=== PATIENT | male | born 1960 | race Caucasian/White ===

== ENCOUNTER 2018-08-11 08:23 | Observation (INO) ==
[2018-08-11 11:10] LABS: Baso % (Auto) 0.9 % (0.0-2.0); Eos # (Auto) 0.1 th/mm3 (0.0-0.4); Eos % (Auto) 1.2 % (0.0-4.0); Hematocrit 50.5 % (39.0-51.0); Hemoglobin 17.4 gm/dL (13.0-17.0); Lymph # (Auto) 1.7 th/mm3 (1.0-4.8); Lymph % (Auto) 33.1 % (9.0-44.0); Mean Corpuscular HGB Conc 34.4 % (32.0-36.0); Mean Corpuscular Hemoglobin 33.1 pg (27.0-34.0); Mean Corpuscular Volume 96.3 fL (80.0-100.0); Mean Platelet Volume 7.5 fL (7.0-11.0); Mono # (Auto) 0.4 th/mm3 (0.0-0.9); Mono % (Auto) 8.4 % (0.0-8.0); Neut % (Auto) 56.4 % (16.0-70.0); Platelet Count 235 th/mm3 (150-450); Red Blood Count 5.24 mil/mm3 (4.50-5.90); Red Cell Distribution Width 13.7 % (11.6-17.2); White Blood Count 5.2 th/mm3 (4.0-11.0)
--- NOTE | 2018-08-11 11:26 | XR ---
EXAM DATE: 08/11/2018 11:17 AM EST AGE/SEX: 58 years / Male INDICATIONS: Chest pain. CLINICAL DATA: This is the patient's initial encounter. Patient reports that signs and symptoms have been present for 1 day and indicates a pain score of 8/10. MEDICAL/SURGICAL HISTORY: None. None. COMPARISON: No prior exams available for comparison. FINDINGS: A single AP view of the chest demonstrates the lungs to be symmetrically aerated without evidence of mass, infiltrate or effusion. Incidental azygos lobe. The cardiomediastinal contours are unremarkable . Osseous structures are intact. CONCLUSION: Negative for acute process Electronically signed by: Victoriano Meléndez MD Board Certified Radiologist 08/11/2018 11:24 AM EST
[2018-08-11 11:27] LABS: Activated Partial Thrombo Time 30.9 sec (23.4-31.7); Prothrombin Time 10.1 sec (9.8-11.6)
[2018-08-11 11:32] LABS: Albumin 4.3 g/dL (3.4-5.0); Anion Gap 8 meq/L (5-15); Aspartate Aminotransferase 30 U/L (15-37); Blood Urea Nitrogen 14 mg/dL (7-18); Calcium 9.1 mg/dL (8.5-10.1); Chloride 103 meq/L (98-107); Glomerular Filtration Rate 74 mL/min (>89); Glucose,Random 83 mg/dL (74-106); Lipase 396 U/L (73-393); Sodium 138 meq/L (136-145)
[2018-08-11 11:37] LABS: Alanine Aminotransferase 50 U/L (12-78); Alkaline Phosphatase 55 U/L (45-117); Creatine Kinase 107 U/L (39-308); Total Protein 8.7 g/dL (6.4-8.2); Troponin I 0.03 ng/mL (0.02-0.05)
[2018-08-11 11:49] LABS: Creatine Kinase MB 1.5 ng/mL (0.5-3.6)
[2018-08-11 12:01] LABS: Eosinophils 1 % (0-4); Lymphocytes 24 % (9-44); Monocytes 10 % (0-8); Tallied Nucleated RBC 2 (0-0)
[2018-08-11 12:04] LABS: Platelet Estimate Normal (Normal); Platelet Morphology Normal (Normal)
--- NOTE | 2018-08-11 12:59 | ED ---
HPI General Chief complaint: Chest Pain Stated complaint: Cardiac/SOB Complaint Time Seen by Provider: 08/11/18 10:19 Source: patient Mode of arrival: ambulatory Limitations: no limitations History of Present Illness HPI narrative: Patient is a 58-year-old male who comes in complaining of chest pain. He pain for months. He went to see his doctor yesterday who told him that if he had another episode he should come to the emergency department. He was given a prescription for nitroglycerin by his doctor, but he has not taken any. He says the pain is in the middle of his chest, he gets dizzy when it comes on and feels a little short of breath. This does seem to be related to exertion. He did experience pain to the center of his chest spreading up to his neck today, which she says is similar to previous episodes. He denies cough or cold symptoms. He denies fever chills. Severity is moderate. Related Data Home Medications Medication Instructions Recorded Confirmed amlodipine 10 mg PO QPM 08/11/18 08/11/18 atenolol 100 mg PO BID 08/11/18 08/11/18 diazepam 5 mg PO BID 08/11/18 08/11/18 dolutegravir-rilpivirine [Juluca] 1 tab PO QPM 08/11/18 08/11/18 nitroglycerin 0.4 mg SUBLINGUAL Q5-15M PRN 08/11/18 08/11/18 tenofovir disoproxil fumarate 300 mg PO QPM 08/11/18 08/11/18 Allergies Allergy/AdvReac Type Severity Reaction Status Date / Time No Known Allergies Allergy Verified 08/11/18 10:42 Review of Systems ROS: all other systems reviewed are negative Constitutional Denies chills and Denies fever(s) ENT Denies dizziness Cardiovascular Reports chest pain Respiratory Denies cough Gastrointestinal Denies nausea and Denies vomiting Musculoskeletal Denies myalgias and Denies arthralgias Integumentary/Breasts Denies sores and Denies wounds Neurologic Denies focal weakness and Denies numbness PMFSH Medical History Medical History HIV (human immunodeficiency virus infection) (Acute) Hypertension (Acute) Social History Social History Substance History: Active Abuse Second Hand Smoke Exposure: No Smoking Status: Former smoker How Often Do You Have a Drink Containing Alcohol: Never Recent Travel in [facility] within the Last 8 Weeks: No Recent Out of Country Travel within the Last 8 Weeks: No Substance Abuse Detail Marijuana: Substance Use Status: Active Route Used Substance Abuse: Inhalation Reason for Use: Get High Immunization History Tetanus Immunization: <5 Years Exam Narrative Exam Narrative: GENERAL: Awake and alert, no acute distress. SKIN: Focused skin assessment warm/dry. HEAD: Atraumatic. Normocephalic. EYES: Pupils equal and round. No scleral icterus. No injection or drainage. ENT: No nasal bleeding or discharge. Mucous membranes pink and moist. NECK: Trachea midline. No JVD. CARDIOVASCULAR: Regular rate and rhythm. No murmur appreciated. RESPIRATORY: No accessory muscle use. Clear to auscultation. Breath sounds equal bilaterally. GASTROINTESTINAL: Abdomen soft, non-tender, nondistended. MUSCULOSKELETAL: No obvious deformities. No clubbing. No cyanosis. No edema. NEUROLOGICAL: Awake and alert. No obvious cranial nerve deficits. Motor grossly within normal limits. Normal speech. PSYCHIATRIC: Appropriate mood and affect; insight and judgment normal. Course Initial Documented Vital Signs Temperature 98.0 F 08/11/18 08:31 Pulse Rate 65 08/11/18 08:31 Respiratory Rate 20 08/11/18 08:31 Blood Pressure 169/87 H 08/11/18 08:31 Pulse Oximetry 98 08/11/18 08:31 Last Documented Vital Signs Temperature 97.8 F 08/11/18 19:27 Pulse Rate 63 08/11/18 19:27 Respiratory Rate 18 08/11/18 19:27 Blood Pressure 146/85 H 08/11/18 19:27 Pulse Oximetry 92 L 08/11/18 19:34 Medical Decision Making MDM Narrative Medical decision making narrative: Patient is a 4-year-old male comes in complaining of chest pain. Exam shows no acute abnormalities. IV established, labs sent. Patient connected to the monitoring analyst. Patient given aspirin and nitro. Labs show no acute abnormalities. Chest x-ray shows no acute abnormalities. Patient will be placed in chest pain center for further management. Medical Screen Exam Complete: Yes Emergency Medical Condition: Yes Differential Diagnosis Differential Diagnosis: ACS versus NSTEMI versus STEMI Medical Records Medical records reviewed: Yes I reviewed the patient's medical records. Lab Data Lab results reviewed: Yes I reviewed the patient's lab results. Result diagrams: 08/11/18 10:45 08/11/18 10:45 Lab Results 08/11/18 08/11/18 08/11/18 Range/Units 10:45 10:45 10:45 WBC 5.2 (4.0-11.0) th/mm3 RBC 5.24 (4.50-5.90) mil/mm3 Hgb 17.4 H (13.0-17.0) gm/dL Hct 50.5 (39.0-51.0) % MCV 96.3 (80.0-100.0) fL MCH 33.1 (27.0-34.0) pg MCHC 34.4 (32.0-36.0) % RDW 13.7 (11.6-17.2) % Plt Count 235 (150-450) th/mm3 MPV 7.5 (7.0-11.0) fL Prelim Diff (Auto) Slide review pending Neut % (Auto) 56.4 (16.0-70.0) % Lymph % (Auto) 33.1 (9.0-44.0) % [place] % (Auto) 8.4 H (0.0-8.0) % Eos % (Auto) 1.2 (0.0-4.0) % Baso % (Auto) 0.9 (0.0-2.0) % Neut # (Auto) 3.0 (1.8-7.7) th/mm3 Lymph # (Auto) 1.7 (1.0-4.8) th/mm3 [place] # (Auto) 0.4 (0.0-0.9) th/mm3 Eos # (Auto) 0.1 (0.0-0.4) th/mm3 Baso # (Auto) 0.0 (0.0-0.2) th/mm3 WBC Differential Manual diff final Seg Neuts % (Manual) 63 (16-70) % Band Neuts % (Manual) 1 (0-6) % Lymphocytes % (Manual) 24 (9-44) % Monocytes % (Manual) 10 H (0-8) % Eosinophils % (Manual) 1 (0-4) % Basophils % (Manual) 1 (0-2) % Abs Neuts (Manual) 3.3 (1.8-7.7) th/mm3 Nucleated RBCs/100 WBC 2 H (0-0) /100 WBC Differential Comment . Platelet Estimate Normal (Normal) Platelet Morphology Normal (Normal) PT 10.1 (9.8-11.6) sec INR 1.0 Ratio APTT 30.9 (23.4-31.7) sec Sodium 138 (136-145) meq/L Potassium 4.0 (3.5-5.1) meq/L Chloride 103 (98-107) meq/L Carbon Dioxide 27.0 (21.0-32.0) meq/L Anion Gap 8 (5-15) meq/L BUN 14 (7-18) mg/dL Creatinine 1.03 (0.60-1.30) mg/dL Estimated GFR 74 L (>89) mL/min Random Glucose 83 (74-106) mg/dL Calcium 9.1 (8.5-10.1) mg/dL Total Bilirubin 0.6 (0.2-1.0) mg/dL AST 30 (15-37) U/L ALT 50 (12-78) U/L Alkaline Phosphatase 55 (45-117) U/L Total Creatine Kinase 107 (39-308) U/L CK-MB (CK-2) 1.5 (0.5-3.6) ng/mL Troponin I 0.03 (0.02-0.05) ng/mL Total Protein 8.7 H (6.4-8.2) g/dL Albumin 4.3 (3.4-5.0) g/dL Lipase 396 H (73-393) U/L 08/11/18 08/11/18 Range/Units 15:07 18:27 WBC (4.0-11.0) th/mm3 RBC (4.50-5.90) mil/mm3 Hgb (13.0-17.0) gm/dL Hct (39.0-51.0) % MCV (80.0-100.0) fL MCH (27.0-34.0) pg MCHC (32.0-36.0) % RDW (11.6-17.2) % Plt Count (150-450) th/mm3 MPV (7.0-11.0) fL Prelim Diff (Auto) Neut % (Auto) (16.0-70.0) % Lymph % (Auto) (9.0-44.0) % [place] % (Auto) (0.0-8.0) % Eos % (Auto) (0.0-4.0) % Baso % (Auto) (0.0-2.0) % Neut # (Auto) (1.8-7.7) th/mm3 Lymph # (Auto) (1.0-4.8) th/mm3 [place] # (Auto) (0.0-0.9) th/mm3 Eos # (Auto) (0.0-0.4) th/mm3 Baso # (Auto) (0.0-0.2) th/mm3 WBC Differential Seg Neuts % (Manual) (16-70) % Band Neuts % (Manual) (0-6) % Lymphocytes % (Manual) (9-44) % Monocytes % (Manual) (0-8) % Eosinophils % (Manual) (0-4) % Basophils % (Manual) (0-2) % Abs Neuts (Manual) (1.8-7.7) th/mm3 Nucleated RBCs/100 WBC (0-0) /100 WBC Differential Comment Platelet Estimate (Normal) Platelet Morphology (Normal) PT (9.8-11.6) sec INR Ratio APTT (23.4-31.7) sec Sodium (136-145) meq/L Potassium (3.5-5.1) meq/L Chloride (98-107) meq/L Carbon Dioxide (21.0-32.0) meq/L Anion Gap (5-15) meq/L BUN (7-18) mg/dL Creatinine (0.60-1.30) mg/dL Estimated GFR (>89) mL/min Random Glucose (74-106) mg/dL Calcium (8.5-10.1) mg/dL Total Bilirubin (0.2-1.0) mg/dL AST (15-37) U/L ALT (12-78) U/L Alkaline Phosphatase (45-117) U/L Total Creatine Kinase 122 85 (39-308) U/L CK-MB (CK-2) (0.5-3.6) ng/mL Troponin I 0.03 0.03 (0.02-0.05) ng/mL Total Protein (6.4-8.2) g/dL Albumin (3.4-5.0) g/dL Lipase (73-393) U/L Imaging Data Radiologist's impression: Chest X-Ray 08/11/18 10:25 CONCLUSION: Negative for acute process ECG Data EKG Prior to Arrival: No Attestation: I personally reviewed and interpreted this ECG as follows: Interpretation: ECG shows normal sinus rhythm, no ST elevation or depression Discharge Plan Discharge Disposition Patient Disposition: ED Admit(ED Internal Use Only) Discharge Condition Condition: Stable Discharge Order Discharge Orders: ED Use Only Admit Order (Routine); Ordered 08/11/18 Ordered By: Dolores Hare Discharge Details Diagnosis: Chest pain Physicians Team ED Provider: Dolores Hare Primary Care Provider: UNKNOWN, Attending Provider: David Ty Status ED Status: Left Department Discharge Information Discharge Date/Time: 08/11/18 15:13
--- NOTE | 2018-08-11 14:27 | P.PNCA ---
Subjective Interval history: 58-year-old patient with a history of hypertension and HIV positive followed by Dr. Ro in [place]. About 2 months ago he began to notice some intermittent chest discomfort that was precipitated [place] He was having this perhaps 2-3 times a week. Over the ensuing 2 months the frequency and severity has increased so that over the last week he has had it for more times. 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 The predominance of pain occurs with exertion although he has had some resting episodes. Generally it lasts 15-20 minutes and is associated with shortness of breath. He has a history of cigarette abuse although he stopped cigarettes 6 years ago but still vapes and a positive family history. History is as otherwise documented in the chart Medications and Allergies Active Medications: Active Medications Sodium Chloride (Ns Flush) 2 ml IV.FLUSH UNSCH PRN PRN Reason: FLUSH AFTER USING IV ACCESS Allergies Allergy/AdvReac Type Severity Reaction Status Date / Time No Known Allergies Allergy Verified 08/11/18 10:42 Home Medications Medication Instructions Recorded Confirmed Type amlodipine 10 mg PO QPM 08/11/18 08/11/18 History atenolol 100 mg PO BID 08/11/18 08/11/18 History dolutegravir-rilpivirine [Juluca] 1 tab PO QPM 08/11/18 08/11/18 History nitroglycerin 0.4 mg SUBLINGUAL Q5-15M PRN 08/11/18 08/11/18 History tenofovir disoproxil fumarate 300 mg PO QPM 08/11/18 08/11/18 History Physical Exam Vital signs: Vital Signs 08/11/18 08:31 08/11/18 10:40 08/11/18 12:03 Temperature 98.0 F Pulse Rate 65 64 58 L Respiratory Rate 20 18 Blood Pressure 169/87 H 196/104 H 176/89 H Pulse Oximetry 98 98 98 08/11/18 13:12 Temperature Pulse Rate 55 L Respiratory Rate 18 Blood Pressure 174/91 H Pulse Oximetry 97 Intake & Output 08/10/18 08/11/18 08/11/18 18:59 06:59 18:59 Weight 87.09 kg Narrative: Well-nourished well-developed man resting comfortably in bed but apparently anxious Pertinence Skin warm and dry with several tattoos on arms Mouth mucous membranes moist tongue well papillated but upper and lower plates in place no lesions Neck supple no JVD masses nodes or bruits Chest nontender diminished breath sounds but no rales wheezes or rhonchi Cardiovascular PMI is not displaced there is a soft 1/6 systolic murmur but no gallops or rubs Abdomen soft nontender no guarding or rebound no masses Psychiatric patient seems to be anxious but affect and judgment seem intact Results 08/11/18 10:45 08/11/18 10:45 Cardiac Enzymes 08/11/18 Range/Units 10:45 AST 30 (15-37) U/L CK-MB (CK-2) 1.5 (0.5-3.6) ng/mL Troponin I 0.03 (0.02-0.05) ng/mL Coagulation 08/11/18 Range/Units 10:45 PT 10.1 (9.8-11.6) sec APTT 30.9 (23.4-31.7) sec CBC 08/11/18 Range/Units 10:45 WBC 5.2 (4.0-11.0) th/mm3 RBC 5.24 (4.50-5.90) mil/mm3 Hgb 17.4 H (13.0-17.0) gm/dL Hct 50.5 (39.0-51.0) % Plt Count 235 (150-450) th/mm3 Neut # (Auto) 3.0 (1.8-7.7) th/mm3 Lymph # (Auto) 1.7 (1.0-4.8) th/mm3 [place] # (Auto) 0.4 (0.0-0.9) th/mm3 Eos # (Auto) 0.1 (0.0-0.4) th/mm3 Baso # (Auto) 0.0 (0.0-0.2) th/mm3 Comprehensive Metabolic Panel 08/11/18 Range/Units 10:45 Sodium 138 (136-145) meq/L Potassium 4.0 (3.5-5.1) meq/L Chloride 103 (98-107) meq/L Carbon Dioxide 27.0 (21.0-32.0) meq/L BUN 14 (7-18) mg/dL Creatinine 1.03 (0.60-1.30) mg/dL Calcium 9.1 (8.5-10.1) mg/dL AST 30 (15-37) U/L ALT 50 (12-78) U/L Alkaline Phosphatase 55 (45-117) U/L Total Protein 8.7 H (6.4-8.2) g/dL Albumin 4.3 (3.4-5.0) g/dL Intake and Output 08/10/18 08/11/18 08/11/18 22:59 06:59 14:59 Other: Weight 87.09 kg Patient Weight 08/12/18 06:59 Weight 87.09 kg - Imaging and Cardiology Imaging: Impressions Chest X-Ray 08/11/18 10:25 CONCLUSION: Negative for acute process Assessment and Plan - Plan Patient will be evaluated and ruled out using chest pain center protocol. If negative he will be evaluated with Lexiscan since he has an abnormal resting EKG and possible unstable angina with increasing frequency and severity of his episodes.
[2018-08-11] MEDS ORDERED: Acetaminophen 500 MG Tablet PO PRN (14:57)
[2018-08-11] MEDS ORDERED: ALPRAZolam 0.25 MG Tablet PO PRN (15:06)
--- NOTE | 2018-08-11 15:06 | P.HPCA ---
History of Present Illness Primary Care Physician: UNKNOWN Chief Complaint: Chest pain History of Present Illness: This is a 58-year-old male that presents to ED with history of hypertension and HIV that was diagnosed in 1994 that presents to ED via private vehicle with complaint of 2 months of intermittent heaviness/pressure in the center of his chest. It at times will radiate to his neck. Sometimes is brought on by eating but always always this occurred with activity which she describes as walking. It will be relieved by sitting within 15-30 minutes. It can linger on for some time it is brought on after eating. He at times is short of breath. Denies nausea or diaphoresis. Denies recent illness. Denies fevers or chills. Was seen by his primary care physician in [place] yesterday and atenolol was increased from 100 mg once a day to twice a day and he was advised to go to an ER for further evaluation of his chest discomfort. He presented today. Has no chest discomfort at this time. Past medical history: Hypertension. Diagnosed HIV 1994 states now nondetectable. Denies hyperlipidemia, diabetes, and known CAD. Family history: States his father had onset CAD in his 40s. Social history: Patient quit smoking cigarettes 6 years ago and was smoking about 2 pack of series daily for 44 years at that time. He is currently been vaping for the last 6 years. Rarely has alcohol. Smokes marijuana 2-3 times a month. Surgical history: Colon resection secondary to diverticulitis. Appendectomy. Right carpal tunnel release. - Diagnosis (1) Chest pain (2) Hypertension (3) HIV (human immunodeficiency virus infection) Review of Systems General: Patient denies fevers, chills, and recent travel. HEENT: Patient denies headache, sore throat, difficulty swallowing. Cardiovascular: Has the chest discomfort as mentioned above. Denies sensation of heart beating rapidly or irregularly. No syncope. Denies diaphoresis. Respiratory: Occasionally short of breath. Denies inspirational chest discomfort. Denies coughing wheezing or hemoptysis. GI: Patient denies nausea, vomiting, diarrhea, abdominal pain, bloody stools. Musculoskeletal: Patient denies joint pain or edema. Denies calf pain or edema. Neurovascular: Patient denies numbness, tingling, weakness in extremities. Denies headache. Endocrine: Denies polyuria and polydipsia. Hematologic: Denies easy bruising. Skin: Denies rash or itching. PMFSH - History History Provided By: Patient - Medical History Medical History: Medical History (Last Updated 08/11/18 @ 08:32 by Svetlana Mcnair) HIV (human immunodeficiency virus infection) Hypertension - Tobacco History Smoking Status: Former smoker - Alcohol History How Often Do You Have a Drink Containing Alcohol: Never - Substance Use History Substance History: Active Abuse - Substance Use Type Marijuana Status: Active Route Used: Inhalation Reason for Use: Get High - Travel History Recent Travel in the [place] Within the Last 8 Weeks: No Recent Travel Out of the Country Within the Last 8 Weeks: No - Immunization History Tetanus Immunization: <5 Years Medications and Allergies Active Medications: Active Medications Amlodipine Besylate (Norvasc) 10 mg PO QPM [place] Atenolol (Tenormin) 100 mg PO BID [place] Non-Formulary Medication (Dolutegravir-Rilpivirine [Juluca]) 1 tab PO QPM [place] Sodium Chloride (Ns Flush) 2 ml IV.FLUSH UNSCH PRN PRN Reason: FLUSH AFTER USING IV ACCESS Tenofovir Disoproxil Fumarate (Viread) 300 mg PO QPM [place] Allergies Allergy/AdvReac Type Severity Reaction Status Date / Time No Known Allergies Allergy Verified 08/11/18 10:42 Home Medications Medication Instructions Recorded Confirmed Type amlodipine 10 mg PO QPM 08/11/18 08/11/18 History atenolol 100 mg PO BID 08/11/18 08/11/18 History dolutegravir-rilpivirine [Juluca] 1 tab PO QPM 08/11/18 08/11/18 History nitroglycerin 0.4 mg SUBLINGUAL Q5-15M PRN 08/11/18 08/11/18 History tenofovir disoproxil fumarate 300 mg PO QPM 08/11/18 08/11/18 History Exam Vital signs: Vital Signs 08/11/18 08:31 08/11/18 10:40 08/11/18 12:03 Temperature 98.0 F Pulse Rate 65 64 58 L Respiratory Rate 20 18 Blood Pressure 169/87 H 196/104 H 176/89 H Pulse Oximetry 98 98 98 08/11/18 13:12 Temperature Pulse Rate 55 L Respiratory Rate 18 Blood Pressure 174/91 H Pulse Oximetry 97 Intake & Output 08/10/18 08/11/18 08/11/18 18:59 06:59 18:59 Weight 87.09 kg Narrative: GENERAL: This is a well-nourished, well-developed patient, in no apparent distress. Patient speaks in clear complete sentences. Patient is pleasant. HEENT: Head is atraumatic and normocephalic. Neck is supple without lymphadenopathy and trachea is midline. No JVD or carotid bruits. CARDIOVASCULAR: Grade 1 systolic murmur left sternal border. Regular rate and rhythm without gallops or rubs. RESPIRATORY: Clear to auscultation. Breath sounds equal bilaterally. No wheezes , rales, or rhonchi. Chest wall is nontender. No use of accessory muscles. GASTROINTESTINAL: Abdomen is nontender, nondistended. Abdomen soft. No obvious pulsatile mass or bruit. No CVA tenderness. Strong femoral pulses bilaterally. Normal bowel sounds in all quadrants. MUSCULOSKELETAL: Patient is moving upper and lower extremities freely. No calf tenderness or edema, no Homans sign. Strong pulses in upper and lower extremities. NEUROLOGICAL: Patient is alert and oriented. Cranial nerves 2-12 are grossly intact. No focal deficits and speech is clear. SKIN: No rash and turgor is normal. Results 08/11/18 10:45 08/11/18 10:45 Cardiac Enzymes 08/11/18 Range/Units 10:45 AST 30 (15-37) U/L CK-MB (CK-2) 1.5 (0.5-3.6) ng/mL Troponin I 0.03 (0.02-0.05) ng/mL Coagulation 08/11/18 Range/Units 10:45 PT 10.1 (9.8-11.6) sec APTT 30.9 (23.4-31.7) sec CBC 08/11/18 Range/Units 10:45 WBC 5.2 (4.0-11.0) th/mm3 RBC 5.24 (4.50-5.90) mil/mm3 Hgb 17.4 H (13.0-17.0) gm/dL Hct 50.5 (39.0-51.0) % Plt Count 235 (150-450) th/mm3 Neut # (Auto) 3.0 (1.8-7.7) th/mm3 Lymph # (Auto) 1.7 (1.0-4.8) th/mm3 [place] # (Auto) 0.4 (0.0-0.9) th/mm3 Eos # (Auto) 0.1 (0.0-0.4) th/mm3 Baso # (Auto) 0.0 (0.0-0.2) th/mm3 Comprehensive Metabolic Panel 08/11/18 Range/Units 10:45 Sodium 138 (136-145) meq/L Potassium 4.0 (3.5-5.1) meq/L Chloride 103 (98-107) meq/L Carbon Dioxide 27.0 (21.0-32.0) meq/L BUN 14 (7-18) mg/dL Creatinine 1.03 (0.60-1.30) mg/dL Calcium 9.1 (8.5-10.1) mg/dL AST 30 (15-37) U/L ALT 50 (12-78) U/L Alkaline Phosphatase 55 (45-117) U/L Total Protein 8.7 H (6.4-8.2) g/dL Albumin 4.3 (3.4-5.0) g/dL Intake and Output 08/10/18 08/11/18 08/11/18 22:59 06:59 14:59 Other: Weight 87.09 kg Patient Weight 08/12/18 06:59 Weight 87.09 kg - Imaging and Cardiology Imaging: Impressions Chest X-Ray 08/11/18 10:25 CONCLUSION: Negative for acute process EKG interpretations - EKG EKG shows: sinus rhythm (Initial EKG is sinus rhythm with nonspecific ST-T T changes.) Caprini VTE Risk Assessment Caprini VTE Risk Assessment: No/Low Risk (score <= 1) Caprini Risk Assessment Model: Point Value = 1 Point Value = 2 Point Value = 3 Point Value = 5 Age 41-60 Minor surgery BMI > 25 kg/m2 Swollen legs Varicose veins or History of unexplained or recurrent spontaneous Oral contraceptives or hormone replacement Sepsis (< 1 month) Serious lung disease, including pneumonia (< 1 month) Abnormal pulmonary function Acute myocardial infarction Congestive heart failure (< 1 month) History of inflammatory bowel disease Medical patient at bed rest Age 61-74 Arthroscopic surgery Major open surgery (> 45 min) Laparoscopic surgery (> 45 min) Malignancy Confined to bed (> 72 hours) Immobilizing plaster cast Central venous access Age >= 75 History of VTE Family history of VTE Factor V Leiden Prothrombin [id number] Lupus anticoagulant Anticardiolipin antibodies Elevated serum homocysteine Heparin-induced thrombocytopenia Other congenital or acquired thrombophilia Stroke (< 1 month) Elective arthroplasty Hip, pelvis, or leg fracture Acute spinal cord injury (< 1 month) Prophylaxis Regimen: Total Risk Factor Score Risk Level Prophylaxis Regimen 0-1 Low Early ambulation 2 Moderate Order ONE of the following: *Sequential Compression Device (SCD) *Heparin 5000 units SQ BID 3-4 Higher Order ONE of the following medications: *Heparin 5000 units SQ TID *Enoxaparin/Lovenox 40 mg SQ daily (WT < 150 kg, CrCl > 30 mL/min) *Enoxaparin/Lovenox 30 mg SQ daily (WT < 150 kg, CrCl > 10-29 mL/min) *Enoxaparin/Lovenox 30 mg SQ BID (WT < 150 kg, CrCl > 30 mL/min) AND/OR *Sequential Compression Device (SCD) 5 or more Highest Order ONE of the following medications: *Heparin 5000 units SQ TID (Preferred with Epidurals) *Enoxaparin/Lovenox 40 mg SQ daily (WT < 150 kg, CrCl > 30 mL/min) *Enoxaparin/Lovenox 30 mg SQ daily (WT < 150 kg, CrCl > 10-29 mL/min) *Enoxaparin/Lovenox 30 mg SQ BID (WT < 150 kg, CrCl > 30 mL/min) AND *Sequential Compression Device (SCD) Assessment and Plan - Assessment (1) Chest pain Code(s): R07.9 - Chest pain, unspecified Status: Acute (2) Hypertension Code(s): I10 - Essential (primary) hypertension Status: Acute (3) HIV (human immunodeficiency virus infection) Code(s): B20 - Human immunodeficiency virus [HIV] disease Status: Acute - Plan Patient will be evaluated and ruled out using chest pain center protocol. If negative he will be evaluated with Lexiscan since he has an abnormal resting EKG and possible unstable angina with increasing frequency and severity of his episodes. (1) Chest pain Qualifiers: Chest pain type: unspecified Qualified Code(s): R07.9 - Chest pain, unspecified
[2018-08-11 16:19] LABS: Troponin I 0.03 ng/mL (0.02-0.05)
[2018-08-11] MEDS ORDERED: RILPIVIRINE 25 MG PO SCH (18:00)
[2018-08-11] MEDS ORDERED: DOLUTEGRAVIR RILPIVIRINE PO SCH (18:00)
[2018-08-11] MEDS ORDERED: amLODIPine 10 MG Tablet PO SCH (18:00)
[2018-08-11] MEDS ORDERED: Tenofovir 300 MG Tablet PO SCH (18:00)
[2018-08-11 19:07] LABS: Troponin I 0.03 ng/mL (0.02-0.05)
[2018-08-11] MEDS: Atenolol 100 MG Tablet PO SCH (21:13)
[2018-08-12 07:55] VITALS: RESP 16
[2018-08-12] MEDS ORDERED: Regadenoson Inj 0.4 MG/5 ML Syringe IV.PUSH ONE (08:31)
--- NOTE | 2018-08-12 08:31 | P.PNCA ---
Subjective Interval history: No complaints overnight. Medications and Allergies Active Medications: Active Medications Acetaminophen (Tylenol) 500 mg PO Q6H PRN PRN Reason: pain scale 1-5 Hydrocodone Bitart/Acetaminophen (Hope 7.5/325) 1 tab PO Q6H PRN PRN Reason: pain scale 6-10 Albuterol (Duoneb Neb (Prn)) 1 ampul NEB Q4HR NEB PRN PRN Reason: SHORTNESS OF BREATH/WHEEZING Alprazolam (Xanax) 0.25 mg PO Q8H PRN PRN Reason: ANXIETY Amlodipine Besylate (Norvasc) 10 mg PO QPM [facility] Last Admin: 08/11/18 18:03 Dose: 10 mg Aspirin (Aspirin) 325 mg PO DAILY [facility] Atenolol (Tenormin) 100 mg PO BID [facility] Last Admin: 08/11/18 21:13 Dose: 100 mg Dolutegravir Sodium (Tivicay) 50 mg PO QPM [facility] Last Admin: 08/11/18 18:02 Dose: 50 mg Ondansetron HCl (Zofran Inj) 4 mg IV.PUSH Q6H PRN PRN Reason: NAUSEA Rilpivirine (Edurant) 25 mg PO QPM [facility] Last Admin: 08/11/18 18:03 Dose: 25 mg Sodium Chloride (Ns Flush) 2 ml IV.FLUSH UNSCH PRN PRN Reason: FLUSH AFTER USING IV ACCESS Sodium Chloride (Ns Flush) 2 ml IV.FLUSH BID [facility] Last Admin: 08/11/18 21:15 Dose: 2 ml Sodium Chloride (Ns Flush) 2 ml IV.FLUSH PRN PRN PRN Reason: FLUSH AFTER USING IV ACCESS Tenofovir Disoproxil Fumarate (Viread) 300 mg PO QPM [facility] Last Admin: 08/11/18 18:05 Dose: 300 mg Allergies Allergy/AdvReac Type Severity Reaction Status Date / Time No Known Allergies Allergy Verified 08/11/18 10:42 Home Medications Medication Instructions Recorded Confirmed Type amlodipine 10 mg PO QPM 08/11/18 08/11/18 History atenolol 100 mg PO BID 08/11/18 08/11/18 History diazepam 5 mg PO BID 08/11/18 08/11/18 History dolutegravir-rilpivirine [Juluca] 1 tab PO QPM 08/11/18 08/11/18 History nitroglycerin 0.4 mg SUBLINGUAL Q5-15M PRN 08/11/18 08/11/18 History tenofovir disoproxil fumarate 300 mg PO QPM 08/11/18 08/11/18 History Physical Exam Vital signs: Vital Signs 08/11/18 10:40 08/11/18 12:03 08/11/18 13:12 Temperature Pulse Rate 64 58 L 55 L Respiratory Rate 18 18 Blood Pressure 196/104 H 176/89 H 174/91 H Pulse Oximetry 98 98 97 08/11/18 16:00 08/11/18 19:27 08/11/18 19:34 Temperature 97.8 F Pulse Rate 64 63 Respiratory Rate 18 18 Blood Pressure 160/80 H 146/85 H Pulse Oximetry 97 93 L 92 L 08/11/18 20:00 08/11/18 23:51 08/12/18 00:09 Temperature 97.6 F Pulse Rate 63 65 61 Respiratory Rate 16 Blood Pressure 131/76 Pulse Oximetry 94 L 08/12/18 04:00 08/12/18 07:53 08/12/18 07:58 Temperature 97.8 F 96.9 F L Pulse Rate 56 L 54 L Respiratory Rate 18 16 Blood Pressure 115/59 L 147/85 H Pulse Oximetry 94 L 95 95 Intake & Output 08/11/18 08/12/18 08/12/18 18:59 06:59 18:59 Intake Total 500 / 500 Balance 500 / 500 Weight 87.09 kg Intake: Oral 500 / 500 Other: # Voids 2 2 Date of Last Bowel Movement 08/10/18 Weight On Admission 87.09 kg - Constitutional no acute distress, cooperative - Routine HEENT Exam Head: Present: normocephalic, atraumatic - Routine Respiratory Exam Present: CTA bilaterally - Routine Cardiovascular Exam Present: RRR, murmur Results 08/11/18 10:45 08/11/18 10:45 Cardiac Enzymes 08/11/18 08/11/18 08/11/18 Range/Units 10:45 15:07 18:27 AST 30 (15-37) U/L CK-MB (CK-2) 1.5 (0.5-3.6) ng/mL Troponin I 0.03 0.03 0.03 (0.02-0.05) ng/mL Coagulation 08/11/18 Range/Units 10:45 PT 10.1 (9.8-11.6) sec APTT 30.9 (23.4-31.7) sec CBC 08/11/18 Range/Units 10:45 WBC 5.2 (4.0-11.0) th/mm3 RBC 5.24 (4.50-5.90) mil/mm3 Hgb 17.4 H (13.0-17.0) gm/dL Hct 50.5 (39.0-51.0) % Plt Count 235 (150-450) th/mm3 Neut # (Auto) 3.0 (1.8-7.7) th/mm3 Lymph # (Auto) 1.7 (1.0-4.8) th/mm3 Johnston # (Auto) 0.4 (0.0-0.9) th/mm3 Eos # (Auto) 0.1 (0.0-0.4) th/mm3 Baso # (Auto) 0.0 (0.0-0.2) th/mm3 Comprehensive Metabolic Panel 08/11/18 Range/Units 10:45 Sodium 138 (136-145) meq/L Potassium 4.0 (3.5-5.1) meq/L Chloride 103 (98-107) meq/L Carbon Dioxide 27.0 (21.0-32.0) meq/L BUN 14 (7-18) mg/dL Creatinine 1.03 (0.60-1.30) mg/dL Calcium 9.1 (8.5-10.1) mg/dL AST 30 (15-37) U/L ALT 50 (12-78) U/L Alkaline Phosphatase 55 (45-117) U/L Total Protein 8.7 H (6.4-8.2) g/dL Albumin 4.3 (3.4-5.0) g/dL Intake and Output 08/11/18 08/12/18 08/12/18 22:59 06:59 14:59 Intake Total 500 / 500 Balance 500 / 500 Intake: Oral 500 / 500 Other: # Voids 2 2 Date of Last Bowel Movement 08/10/18 Weight 87.09 kg Weight On Admission 87.09 kg - Imaging and Cardiology Imaging: Impressions Chest X-Ray 08/11/18 10:25 CONCLUSION: Negative for acute process Assessment and Plan - Assessment (1) Chest pain Code(s): R07.9 - Chest pain, unspecified Status: Acute Plan: Monitored on telemetry overnight. ACS ruled out with 3 sets of EKGs and cardiac enzymes. T wave depression unchanged in all 3 EKGs. Previously seen and evaluated by Dr. David Ty. Proceed with recommended Lexiscan this morning. (2) Hypertension Code(s): I10 - Essential (primary) hypertension Status: Chronic Plan: Continue amlodipine and atenolol. (3) HIV (human immunodeficiency virus infection) Code(s): B20 - Human immunodeficiency virus [HIV] disease Status: Chronic Plan: Continue antivirals. - Plan Patient will be evaluated and ruled out using chest pain center protocol. If negative he will be evaluated with Lexiscan since he has an abnormal resting EKG and possible unstable angina with increasing frequency and severity of his episodes. (1) Chest pain Qualifiers: Chest pain type: unspecified Qualified Code(s): R07.9 - Chest pain, unspecified (2) Hypertension Qualifiers: Hypertension type: unspecified Qualified Code(s): I10 - Essential (primary) hypertension (3) HIV (human immunodeficiency virus infection) Qualifiers: HIV symptom status: asymptomatic Qualified Code(s): Z21 - Asymptomatic human immunodeficiency virus [HIV] infection status
[2018-08-12] MEDS: Atenolol 100 MG Tablet PO SCH (08:46)
[2018-08-12] MEDS ORDERED: Aspirin 325 MG Tablet PO SCH (09:00)
--- NOTE | 2018-08-12 12:23 | NM ---
EXAM DATE: 08/12/2018 11:10 AM EST AGE/SEX: 58 years / Male INDICATIONS:Angina. . Substernal chest pain. CLINICAL DATA: This is the patient's initial encounter. Patient reports that signs and symptoms have been present for 1 day and indicates a pain score of 7/10. MEDICAL/SURGICAL HISTORY: HIV. Hypertension. None. COMPARISON: No prior exams available for comparison. DOSE: 8.5 mCi Tc 99m Myoview at rest 25.4 mCi [id number] at stress 0.4 mg Lexiscan STRESS SYMPTOMS: Dyspnea and headache. EJECTION FRACTION: 65 % TECHNIQUE: The patient underwent pharmacologic stress with infusion of prescribed dose. Continuous ECG tracing was monitored during stress. Gated SPECT imaging was performed after stress and conventi onal SPECT imaging was performed at rest. The examination was performed on a SPECT/CT scanner, both attenuation and non-corrected datasets were reviewed. FINDINGS: Distribution: The maximum perfused segment at stress is in the anterior wall. Perfusion Study: The pattern of perfusion at stress is within normal limits. Gated Study: There are intact wall motion and wall thickening without hypokinetic or dyskinetic segm ents. The ejection fraction is calculated at 65%. RISK CATEGORY: Low (<1% Annual Mortality Rate) CONCLUSION: No reversible perfusion defects. No focal wall motion abnormalities. Electronically signed by: Dickson Brock MD Board Certified Radiologist 08/12/2018 12:22 PM EST
[2018-08-12 12:31] VITALS: BP 154/86; PULSE 57; TEMP 97.9; O2SAT 97
--- NOTE | 2018-08-12 15:04 | ECG ---
Date Performed: 08/11/2018 Time Performed: 18:26:10 PTAGE: 58 years EKG: Sinus rhythm ST DEVIATION AND MODERATE T-WAVE ABNORMALITY, CONSIDER LATERAL ISCHEMIA ABNORMAL ECG PREVIOUS TRACING : 08/11/2018 15.22 Since previous tracing, no significant change noted DOCTOR: Clifton Kaye Interpretating Date/Time 08/12/2018 15:02:58
--- NOTE | 2018-08-12 15:05 | ECG ---
Date Performed: 08/11/2018 Time Performed: 15:22:05 PTAGE: 58 years EKG: SINUS BRADYCARDIA WITH FIRST DEGREE AV BLOCK POSSIBLE INFERIOR MYOCARDIAL INFARCTION ABNORM AL ECG NON SPECIFIC ST CHANGES PREVIOUS TRACING : 08/11/2018 08.39 Since previous tracing, no significant change noted DOCTOR: Clifton Kaye Interpretating Date/Time 08/12/2018 15:04:02
--- NOTE | 2018-08-12 15:05 | ECG ---
Date Performed: 08/11/2018 Time Performed: 08:39:07 PTAGE: 58 years EKG: Sinus rhythm WITH FIRST DEGREE AV BLOCK ST DEVIATION AND MODERATE T-WAVE ABNORMALITY, CONSIDER LATERAL ISCHEMIA A BNORMAL ECG NO PREVIOUS TRACING DOCTOR: Clifton Kaye Interpretating Date/Time 08/12/2018 15:04:24
--- NOTE | 2018-08-12 15:08 | TR ---
Date Performed: 08/12/2018 Time Performed: 10:28:15 DOCTOR: Clifton Kaye DRUG LIST: CLINICAL HISTORY: CHEST PAIN REASON FOR TEST: CHEST PAIN REASON FOR ENDING: OBSERVATION: CONCLUSION: COMMENTS: Lexiscan stress test was performed under standard four minute protocol. Radionuclide was injected one minute prior to ending the test. No electrocardiographic abormalities were present t o suggest ischemia. Nuclear imaging and interpretation are pending.
== END 2018-08-12 14:27 | disposition home or self-care (01) ==
LOC: NEPD 08:23 → NEDA 08:23 → NEPHCDU 13:53
PROVIDERS: ADMIT Internal Medicine Interventional Cardiology; ATTEND Internal Medicine Interventional Cardiology
DX: I10 Essential (primary) hypertension; B20 Human immunodeficiency virus [HIV] disease; Z79.899 Other long term (current) drug therapy; R07.89 Other chest pain; I20.9 Angina pectoris, unspecified; Z87.891 Personal history of nicotine dependence; R06.02 Shortness of breath
CPT/HCPCS: 71010; 71045; 78452; 80053; 82550; 82552; 83690; 84484; 85025; 85610; 85730; 93005; 93017; 99285; A9502; G0378; J2785; Q9969